=== PATIENT | female | born 1935 | race Caucasian/White ===

== ENCOUNTER 2016-07-04 15:59 | Outpatient (CLI) | END 2016-07-04 16:00 | disposition home or self-care (01) | LOC: AMBL 15:59 | PROVIDERS: ATTEND Emergency Medicine | DX: R40.4 Transient alteration of awareness (principal); E16.2 Hypoglycemia, unspecified; F03.90 Unspecified dementia, unspecified severity, without behavioral disturbance, psychotic disturbance, mood disturbance, and anxiety; R11.10 Vomiting, unspecified ==

== ENCOUNTER 2016-08-19 14:40 | Outpatient (CLI) ==
[2016-08-19 15:03] LABS: FLU INTERNAL QC INTERNAL QC VALID; RAPID FLU A NEGATIVE (NEGATIVE); RAPID FLU B NEGATIVE (NEGATIVE)
== END 2016-08-19 14:41 | disposition home or self-care (01) ==
LOC: NONPT 14:40
PROVIDERS: ATTEND Family Medicine
DX: R50.9 Fever, unspecified (principal); R11.10 Vomiting, unspecified; R19.7 Diarrhea, unspecified
CPT/HCPCS: 87804

== ENCOUNTER 2016-11-15 16:17 | Outpatient (CLI) ==
[2016-11-15 16:24] LABS: BILIRUBIN,URINE Negative (NEGATIVE); KETONES,URINE Negative (NEGATIVE); LEUKOCYTE ESTERASE ,URINE Trace (NEGATIVE); NITRITE,URINE Positive (NEGATIVE); PH,URINE 5.5 (5-9); PROTEIN,URINE Negative (NEGATIVE); URINE, BLOOD Negative (NEGATIVE)
[2016-11-15 16:43] LABS: ADD URINE MICROSCOPIC YES
[2016-11-15 17:15] LABS: BACTERIA,URINE 3+ (NOT PRESENT)
== END 2016-11-15 16:18 | disposition home or self-care (01) ==
LOC: NONPT 16:17
PROVIDERS: ATTEND Family Medicine
DX: N39.0 Urinary tract infection, site not specified (principal); R41.0 Disorientation, unspecified; R52 Pain, unspecified
CPT/HCPCS: 81001; 87086; 87186

== ENCOUNTER 2017-07-13 19:34 | Emergency (ER) ==
[2017-07-13 19:57] VITALS: TEMP 98.2; BMI 23.6
[2017-07-13] MEDS ORDERED: URO-JET MUCOUSMEMB STA (20:39)
--- NOTE | 2017-07-13 20:44 | ED.PDOC ---
General ED Provider: Dr. BRENT BEASLEY Chief Complaint: Fever Stated Complaint: States she has not been acting normal for her, more sleepy and not as alert. Usually has a UTI when this happens. Had a low grade temperature at the alf. Family wanted her checked for possible UTI recurrence. Pateint denies any complaints. Time Seen by Physician: 20:41 Mode of Arrival: Ambulance Information Source: Patient, Family, Penitentiary, EMT Exam Limitations: Dementia [facility] Documentation Reviewed and Agree: Yes Reviewed sepsis parameters & appropriate labs ordered?: No System Inflammatory Response Syndrome: Not Applicable Sepsis Protocol: For patient's 13 years and over: Temp is 96.8 and below OR 101 and greater Pulse >90 BPM Resp >20/minute Acutely Altered Mental Status Are patient's symptoms suggestive of a new infection, such as: -Pneumonia -Skin, Soft Tissue -Endocarditis -UTI -Bone, Joint Infection -Implantable Device -Acute Abdominal Infection -Wound Infection -Meningitis -Blood Stream Catheter Infection -Unknown System Inflammatory Response Syndrome: Not Applicable Miscellaneous Complaint Exam - Febrile Illness/Adult Complaint/Exam Onset/Duration: 1 day Symptoms Are: Still present Highest Temperature Recorded: 99.9 Initial Severity: Mild Current Severity: None Aggravating: Reports: None Associated Signs and Symptoms: Reports: Altered mental status (less reponsive that usual ) Pseudomonas Risk Factors: Reports: None Serious Bacterial Infection Risk Factors: Reports: None Current Antibiotic Use: No Related Surgical History: None Differential Diagnoses: Viremia, Other (UTI ) Quality Indicators For Pneumonia/CAP: Vital signs Patient Advised to Stop Smoking: No (n/a) Review of Systems - Review Of Systems Constitutional: Reports: No symptoms Eyes: Reports: No symptoms Ears, Nose, Mouth, Throat: Reports: No symptoms Respiratory: Reports: No symptoms Cardiac: Reports: No symptoms GI: Reports: No symptoms : Reports: No symptoms Musculoskeletal: Reports: No symptoms Skin: Reports: No symptoms Neurological: Reports: No symptoms Endocrine: Reports: No symptoms Hematologic/Lymphatic: Reports: No symptoms All Other Systems: Reviewed and Negative Past Medical History - Past Medical History Endocrine: Reports: DM 2, Hypothyroid Cardiovascular: Reports: None Respiratory: Reports: None Hematological: Reports: None Gastrointestinal: Reports: GERD Genitourinary: Reports: UTI Neuro/Psych: Reports: Dementia Musculoskeletal: Reports: None Cancer: Reports: Breast Last Menstrual Period: na Other Pertinent Past Medical History: Glaucoma - Surgical History General Surgical History: Reports: Other (Left lympectomy) - Family History Family History: Reports: Unknown - Social History Smoking Status: Never smoker Hx Substance Use: No Alcohol Screening: None - Immunizations Tetanus Shot up to Date: No Physical Exam - Physical Exam Appearance: Well-appearing, No pain distress, Well-nourished Eyes: TAJ, EOMI, Conjunctiva clear ENT: Ears normal, Nose normal, Oropharynx normal Respiratory: Airway patent, Breath sounds clear, Breath sounds equal, Respirations nonlabored Cardiovascular: RRR, Pulses normal, No rub, No murmur GI/: Soft, Nontender, No masses, Bowel sounds normal, No Organomegaly Musculoskeletal: Normal strength, ROM intact, No edema, No calf tenderness Skin: Warm, Dry, Normal color Neurological: Sensation intact, Motor intact, Reflexes intact, Cranial nerves intact, Alert, Oriented (to person only ) Psychiatric: Affect appropriate, Mood appropriate Interpretation - Radiology Interpretation Radiology Interpretation By: ED Physician Radiology Results: Negative Exam Interpreted: Portable CXR Critical Care Note - Critical Care Note Total Time (mins): 0 Course - Course Hematology/Chemistry: 07/13/17 21:04 07/13/17 21:04 Orders, Labs, Meds: Lab Review 07/13/17 07/13/17 07/13/17 20:00 20:50 21:04 WBC 9.05 RBC 4.00 L Hgb 12.4 Hct 38.5 MCV 96.3 MCH 31.0 MCHC 32.2 RDW Coeff of Yoni 12.9 Plt Count 190 Immature Gran % (Auto) 0.1 Neut % (Auto) 72.2 Lymph % (Auto) 18.0 [place] % (Auto) 7.4 Eos % (Auto) 2.0 Baso % (Auto) 0.3 Immature Gran # (Auto) 0.0 Neut # (Auto) 6.5 Lymph # (Auto) 1.6 [place] # (Auto) 0.7 Eos # (Auto) 0.2 Baso # (Auto) 0.0 Sodium Potassium Chloride Carbon Dioxide Anion Gap BUN Creatinine Estimated GFR (MDRD) BUN/Creatinine Ratio Glucose Calcium Total Bilirubin AST ALT Alkaline Phosphatase Total Protein Albumin Globulin Albumin/Globulin Ratio Urine Color Yellow Urine Clarity Clear Urine pH 5.5 Ur Specific [place] 1.025 Urine Protein Trace Urine Glucose (UA) 2+ Urine Ketones 1+ Urine Blood Negative Urine Nitrite Negative Urine Bilirubin Negative Urine Urobilinogen 0.2 Ur Leukocyte Esterase Negative Urine Microscopic RBC 2-5 Urine Microscopic WBC 2-5 Ur Squamous Epith Cells 0-2 Urine Bacteria Trace Urine Mucus 1+ Influ A Molecular Assay Negative by naat Influ B Molecular Assay Negative by naat 07/13/17 21:04 WBC RBC Hgb Hct MCV MCH MCHC RDW Coeff of Yoni Plt Count Immature Gran % (Auto) Neut % (Auto) Lymph % (Auto) [place] % (Auto) Eos % (Auto) Baso % (Auto) Immature Gran # (Auto) Neut # (Auto) Lymph # (Auto) [place] # (Auto) Eos # (Auto) Baso # (Auto) Sodium 139 Potassium 3.9 Chloride 104 Carbon Dioxide 24 Anion Gap 14.9 BUN 21 H Creatinine 0.87 Estimated GFR (MDRD) 62.00 BUN/Creatinine Ratio 24.13 Glucose 268 H Calcium 9.1 Total Bilirubin 0.3 AST 24 ALT 21 Alkaline Phosphatase 52 L Total Protein 6.3 Albumin 3.2 L Globulin 3.1 Albumin/Globulin Ratio 1.03 Urine Color Urine Clarity Urine pH Ur Specific [place] Urine Protein Urine Glucose (UA) Urine Ketones Urine Blood Urine Nitrite Urine Bilirubin Urine Urobilinogen Ur Leukocyte Esterase Urine Microscopic RBC Urine Microscopic WBC Ur Squamous Epith Cells Urine Bacteria Urine Mucus Influ A Molecular Assay Influ B Molecular Assay Orders Category Date Time Status ED CATHETER INSERTION AND CARE .ONCE EMERGENCY 07/13/17 20:39 Active CBC W/ AUTO DIFF Stat LAB 07/13/17 21:04 Completed COMPREHENSIVE METABOLIC PANEL Stat LAB 07/13/17 21:04 Completed FLU A/B MOLECULAR Stat LAB 07/13/17 20:00 Completed URINALYSIS C & S IF INDICATED Stat LAB 07/13/17 20:50 Completed Lidocaine HCl [Uro-Jet] MEDS 07/13/17 20:39 Discontinued 10 ml [id number] ONCE STA CHEST, 1V AP ONLY Stat RADS 07/13/17 20:39 Completed Medications Discontinued Medications Generic Name Dose Route Start Last Admin Trade Name Freq PRN Reason Stop Dose Admin Lidocaine HCl 10 ml 07/13/17 20:39 07/13/17 20:53 Uro-Jet [id number] 07/13/17 20:40 Not Given ONCE STA Vital Signs: Temp Pulse Resp BP Pulse Ox 07/13/17 20:30 69 128/65 93 L 07/13/17 19:39 98.2 F 97 H 20 147/73 H 94 L Departure - Departure Time of Disposition: 21:22 Disposition: HOME SELF-CARE Discharge Problem: Elevated temperature Instructions: Fever in Adults (ED) Condition: Fair Pt referred to PMD for follow-up: Yes IPMP verified?: No Additional Instructions: Follow up with PCP as needed. continue Tylenol as needed for fever. Home Medications: Ambulatory Orders Albuterol Sulfate 0.083% Neb [Albuterol 0.083% Neb] 1 vial NEB RTQ6H PRN Aspirin [Aspirin EC] 81 mg PO DAILY 07/13/17 Ramiro/D3/Mag11/Zinc/Report Specialist/Lee/Bor [Caltrate 600+D Plus Tablet] 1 each PO DAILY 11/23 Cyanocobalamin (Vitamin B-12) [Cyanocobalamin Injection] 1,000 mcg IJ MONTHLY Donepezil HCl [Aricept] 20 mg PO DAILY 07/13/17 Dorzolamide HCl/Timolol Maleat [Cosopt] 1 drop OP BID 07/13/17 Glipizide [Glipizide Xl] 10 mg PO BID 07/13/17 Insulin Glargine,Hum.rec.anlog [Lantus] 15 unit SUBCUT DAILY 07/13/17 Levothyroxine Sodium 75 mcg PO DAILY 07/13/17 Menthol/Zinc Oxide [Calmoseptine Ointment] 1 applic TP Q8HR PRN 07/13/17 Disposition Discussed With: Patient
--- NOTE | 2017-07-13 21:04 | DI ---
EXAMINATION: AP portable chest radiograph. HISTORY: Fever FINDINGS: Prior chest radiographs are not available for comparison. The lungs are clear. The aort a is normal in caliber. The heart size is normal. The bones are intact. No pneumothorax or pleural effusions are detected. Surgical clips are noted in the left axilla. IMPRESSION: No acute cardiopulmonary disease.
[2017-07-13 23:33] VITALS: BP 128/65
== END 2017-07-13 23:30 | disposition home or self-care (01) ==
LOC: ED 19:34
DX: R50.9 Fever, unspecified (principal); R09.89 Other specified symptoms and signs involving the circulatory and respiratory systems; R41.82 Altered mental status, unspecified; E11.9 Type 2 diabetes mellitus without complications; E03.9 Hypothyroidism, unspecified; Z87.440 Personal history of urinary (tract) infections; Z79.899 Other long term (current) drug therapy
CPT/HCPCS: 36415; 80053; 81001; 85025; 87502; 99283

== ENCOUNTER 2017-11-13 10:27 | Outpatient (CLI) | payer OTHER | END 2017-11-13 10:45 | disposition short-term general hospital (02) | LOC: AMBL 10:27 | PROVIDERS: ATTEND Family Medicine | DX: R50.9 Fever, unspecified (principal); R05 Cough; R68.89 Other general symptoms and signs; R41.0 Disorientation, unspecified; R53.1 Weakness ==